=== PATIENT | female | born 1955 | race Caucasian/White ===

== ENCOUNTER → 2016-06-29 | Outpatient (CLI) | payer BC ==
--- NOTE | 2016-06-29 17:21 | MA ---
Screening Bilateral Digital Mammogram History: Screening. Mother with breast cancer at age 82. Breast parenchymal density: C. Technique: Four digital views of each breast are obtained including CC and oblique lateral Maranda (im plant displaced) and non-Maranda (implant not displaced) views. CAD is utilized using the iCAD product . Comparison: December 2014, June 2013 and December 2010. Findings: Bilateral breast implants are in place. No suspicious areas are identified. Impression: Negative mammogram. Routine screening is recommended in one year. BIRADS : 1, Negative. [facility] result letter to the patient. Negative mammography should not preclude additional workup of a clinically suspicious finding. The patient's information is entered into a reminder system with a target due date for her next mammo gram.
--- NOTE | 2016-06-29 17:38 | DX ---
DEXA Bone Mineral Densitometry Clinical Indications: Postmenopausal, Synthroid for thyroid dysfunction Comparison: March 15, 2015 (low bone density) Technique: Bone Mineral Densitometry (BMD) by Dual Energy X-Ray Absorptiometry (DEXA) was performed utilizing the [employer] scanner. The lumbar spine was evaluated in the AP projection. The bilat eral hips and forearm were evaluated in the AP projection. Vertebral fracture assessment was also pe rformed. AP Lumbar Spine: The L1, L2 and L3 vertebral bodies were evaluated. L4 is excluded due to degenerat maureen sclerosis. BMD: 1.056 gm/cm2 T-score: -1.0 SD Z-score: 0.2 SD No significant change AP Left Hip: Neck BMD: 0.785 gm/cm2 T-score: -1.8 SD Z-score: -0.6 SD No significant change in total BMD AP Right Hip: Neck BMD: 0.774 gm/cm2 T-score: -1.9 SD Z-score: -0.6 SD No significant change in total BMD AP Left Forearm, 06/26: BMD: 0.695 gm/cm2 T-score: -2.1 SD Z-score: -1.0 SD No significant change. Vertebral Fracture Assessment: No significant fracture deformity. No prevertebral aortic calcificati on, significant marginal bone spurring, facet arthrosis, or intrinsic vertebral body sclerosis that would effect the accuracy of the lumbar spine BMD measurement. Conclusion: Considering the lowest measured site, the patient has low bone density. The ten year FRAX risk for any major osteoporotic fracture , which excludes the risk for a wrist frac ture, is 9.9% and for a hip fracture is 1.2%. Since the forearm is the lowest measured site, it would be worthwhile to exclude hyperparathyroidism. To prevent osteoporosis and to promote the patient's bone density, the following recommendations shou ld be considered: 1. Pursue a regular regimen of weightbearing and muscle strengthening exercises in order to reduce t he risk of falls and fractures (as tolerated by the patient's general medical condition). 2. Ensure that daily dietary calcium uptake is maximized. 3. Consider checking the serum vitamin D level. Ensure that intake of vitamin D is 600 IU per day (fo r all ages through 70) 4. Consider follow-up DEXA scan in 3-4 years to assess the rate of bone loss in this patient.
== END ==
LOC: BRMIMAGING 14:21
DX: Z12.31 Encounter for screening mammogram for malignant neoplasm of breast (principal); Z80.3 Family history of malignant neoplasm of breast; Z13.820 Encounter for screening for osteoporosis
CPT/HCPCS: G0202

== ENCOUNTER → 2018-07-22 | Outpatient (CLI) | payer BC | LOC: CIMAGING 09:38 | PROVIDERS: ATTEND Family Medicine | DX: R05 Cough (principal); I70.0 Atherosclerosis of aorta; M25.78 Osteophyte, vertebrae | CPT/HCPCS: 71046-PO ==

== ENCOUNTER → 2018-10-07 | Outpatient (CLI) | payer BC | LOC: EMCIMAGING 12:18 | PROVIDERS: ATTEND Physician Assistant Medical | DX: Z12.31 Encounter for screening mammogram for malignant neoplasm of breast (principal); Z13.820 Encounter for screening for osteoporosis; M81.0 Age-related osteoporosis without current pathological fracture; E07.9 Disorder of thyroid, unspecified; Z78.0 Asymptomatic menopausal state; Z80.3 Family history of malignant neoplasm of breast | CPT/HCPCS: 77067-PN; 77080-PN ==